=== PATIENT | female | born 1960 | race Caucasian/White ===

== ENCOUNTER 2022-05-12 10:40 | Outpatient (CLI) | payer BC | END 2022-05-12 10:41 | disposition home or self-care (01) | LOC: BURRAD 10:40 | PROVIDERS: ATTEND Nurse Practitioner Family | DX: R07.81 Pleurodynia (principal); S20.212A Contusion of left front wall of thorax, initial encounter; R06.89 Other abnormalities of breathing | CPT/HCPCS: 71046 ==